=== PATIENT | male | born 1960 | race Two or more races ===

== ENCOUNTER 2019-03-08 13:54 | Emergency (ER) | payer BC ==
[2019-03-08] MEDS ORDERED: OXYCODONE-ACETAMINOPHEN 5-325 MG TABLET PO ONE (14:42)
[2019-03-08] MEDS ORDERED: LIDOCAINE 1% INJ (10 MG/ML) 10 ML MDV INJ ONE (14:42)
[2019-03-08] MEDS ORDERED: DIPH/PERTUSS(ACELL)/TETANUS VAC/PF 0.5 ML SYR (>=10YO) IM ONE (14:52)
[2019-03-08] MEDS ORDERED: IBUPROFEN 800 MG TABLET PO ONE (15:12)
[2019-03-08] MEDS ORDERED: CEFAZOLIN 2 GM/D5W RTU 2 GM/50 ML RTUPB IV ONE (15:23)
--- NOTE | 2019-03-08 15:23 | RADIOLOGY REPORT (SQ) ---
EXAM DESCRIPTION: FINGER RIGHT COMPLETED DATE/TIME: 03/08/2019 3:14 pm REASON FOR STUDY: thumb/power saw injury COMPARISON: None. NUMBER OF VIEWS: Three views. TECHNIQUE: AP, lateral, and oblique images acquired of the right thumb. LIMITATIONS: None. FINDINGS: MINERALIZATION: Normal. BONES: Comminuted fracture of the distal phalanx with amputation of the tuft. SOFT TISSUES: Soft tissue deformity of the distal thumb. No radiopaque foreign body. OTHER: No other significant finding. IMPRESSION: TRAUMATIC AMPUTATION OF THE DISTAL END OF THE THUMB. COMMINUTED FRACTURE OF THE DISTAL PHALANX. NO RADIOPAQUE FOREIGN BODY IDENTIFIED. COMMENT: SITE OF TRAUMA/COMPLAINT MARKED/STAMP COMPLETED: YES. TECHNICAL DOCUMENTATION: JOB ID: [id number] [employer]- All Rights Reserved Reading location - IP/workstation name: [email or web address]
[2019-03-08] MEDS ORDERED: LIDOCAINE 1% INJ-PF (10 MG/ML) 30 ML SDV INJ ONE (15:35)
[2019-03-08] MEDS ORDERED: CEFAZOLIN INJ 1 GM VIAL IM ONE (15:39)
--- NOTE | 2019-03-08 16:02 | ER Document Report ---
ED Wound - General Chief Complaint: Finger Injury Stated Complaint: RIGHT HAND INJURY Time Seen by Provider: 03/08/19 14:18 Primary Care Provider: ALLIE HERNANDEZ PA [Primary Care Provider] - Follow up as needed LASHELL CARRERA MD [ACTIVE STAFF] - Follow up as needed Notes: Patient is a 58-year-old male history of diabetes presents to the emergency department for a laceration to his right thumb. States he was using a table saw when his hand slipped and he accidentally cut his right thumb. Patient is unsure of his last tetanus immunization. Patient's denying any other injuries. TRAVEL OUTSIDE OF THE [place] IN LAST 30 DAYS: No - Related Data Allergies/Adverse Reactions: No Known Allergies Allergy (Unverified 10/11/16 19:11) Past Medical History - General Information source: Patient - Social History Smoking Status: Never Smoker Chew tobacco use (# tins/day): No Frequency of alcohol use: None Drug Abuse: None Family History: Reviewed & Not Pertinent Patient has suicidal ideation: No Patient has homicidal ideation: No - Past Medical History Cardiac Medical History: Denies: Hx Coronary Artery Disease, Hx Heart Attack, Hx Hypertension Pulmonary Medical History: Denies: Hx Asthma, Hx Bronchitis, Hx COPD, Hx Pneumonia Neurological Medical History: Denies: Hx Cerebrovascular Accident, Hx Seizures Musculoskeletal Medical History: Denies Hx Arthritis - Immunizations Hx Diphtheria, Pertussis, Tetanus Vaccination: Yes Review of Systems - Review of Systems Constitutional: denies: Fever EENT: No symptoms reported Cardiovascular: No symptoms reported Respiratory: No symptoms reported Gastrointestinal: No symptoms reported Genitourinary: No symptoms reported Male Genitourinary: No symptoms reported Musculoskeletal: See HPI Skin: See HPI Hematologic/Lymphatic: No symptoms reported Neurological/Psychological: No symptoms reported Physical Exam - Vital signs Vitals: Temp Pulse Resp BP Pulse Ox 97.3 F 63 22 H 133/77 H 94 03/08/19 14:00 03/08/19 14:00 03/08/19 14:00 03/08/19 14:00 03/08/19 14:00 - Notes Notes: GENERAL: Alert, interacts well. No acute distress. HEAD: Normocephalic, atraumatic. EYES: Pupils equal, round, and reactive to light. Extraocular movements intact. ENT: Oral mucosa moist, tongue midline. NECK: Full range of motion. Supple. Trachea midline. LUNGS: Clear to auscultation bilaterally, no wheezes, rales, or rhonchi. No respiratory distress. HEART: Regular rate and rhythm. No murmur ABDOMEN: Soft, non-tender. Non-distended. Bowel sounds present in all 4 quadrants. EXTREMITIES: Moves all 4 extremities spontaneously. No edema, normal radial and dorsalis pedis pulses bilaterally. No cyanosis. Full range of motion right MCP and DIP. BACK: no cervical, thoracic, lumbar midline tenderness. No saddle anesthesia, normal distal neurovascular exam. NEUROLOGICAL: Alert and oriented x3. Normal speech. cranial nerves II through XII grossly intact PSYCH: Normal affect, normal mood. SKIN: Warm, dry, normal turgor. Gaping laceration, multiple flaps, contused tissue Noted to the dorsal aspect of the distal right thumb around the nailbed approximately 4 cm. Course - Re-evaluation Re-evalutation: 03/08/19 15:56 Finger X-Ray 03/08/19 14:41 IMPRESSION: TRAUMATIC AMPUTATION OF THE DISTAL END OF THE THUMB. COMMINUTED FRACTURE OF THE DISTAL PHALANX. NO RADIOPAQUE FOREIGN BODY IDENTIFIED. I discussed this patient and x-ray images with orthopedic Dr. Carrera. He is suggesting loosely suturing the patient's right thumb and sending him home on . Dr. Carrera states he will see the patient his office tomorrow. Patient was given initial dose of Ancef in the emergency department. Laceration repaired, patient tolerated well, see procedure note. At this time will discharge with return precautions and follow-up recommendations. Verbal discharge instructions given a the bedside and opportunity for questions given. Medication warnings reviewed. Patient is in agreement with this plan and has verbalized understanding of return precautions and the need for primary care follow-up in the next 24-72 hours. This medical record was dictated with voice recognizing software. There may be grammatical, syntax errors that are unintended. - Vital Signs Vital signs: Temp Pulse Resp BP Pulse Ox 98.5 F 76 14 136/74 H 97 03/08/19 17:00 03/08/19 17:00 03/08/19 17:00 03/08/19 17:00 03/08/19 17:00 Procedures - Immobilization Right thumb Immobilizer type: Finger splint (Static) Performed by: Provider assisted Post-Proc Neuro Vasc Exam: Normal Alignment checked and good: Yes - Laceration/Wound Repair right finger Wound length (cm): 4 Wound's Depth, Shape: Into muscle, Irregular, Flap, Nail-avulsed, Contused tissue Laceration pre-procedure: Sterile PPE donned, Betadine prep applied, Sterile drapes applied, Shur-Clens applied Anesthetic type: 1% Lidocaine Volume Anesthetic (mLs): 5 Wound explored: Clean Irrigated w/ Saline (mLs): 1,000 Wound Debrided: Extensive Wound Repaired With: Sutures Suture Size/Type: Vicryl, 4:0 Number of Sutures: 3 Post-procedure wound care: Sterile dressing applied, Splint applied Post-procedure NV exam normal: Yes Complications: No Discharge - Discharge Clinical Impression: Laceration of right thumb Qualifiers: Encounter type: initial encounter Damage to nail status: with damage Foreign body presence: without foreign body Qualified Code(s): S61.111A - Laceration without foreign body of right thumb with damage to nail, initial encounter Phalanx, distal fracture of finger Qualifiers: Encounter type: initial encounter Finger: thumb Fracture type: open Fracture alignment: displaced Laterality: right Qualified Code(s): S62.521B - Displaced fracture of distal phalanx of right thumb, initial encounter for open fracture Condition: Stable Disposition: HOME, SELF-CARE Instructions: Laceration Care ([facility]), Oral Narcotic Medication ([facility]), Prophylactic Antibiotic ([facility]), Tetanus Immunization Given ([facility]) Additional Instructions: As we discussed you have been seen and treated in the emergency department for an injury to your right thumb. You have sustained a laceration as well as a broken bone. Please make sure taking antibiotics as prescribed. Please only use pain medication as needed. Please make sure you are following up with Dr. Carrera's office tomorrow morning. Phone numbers and address are provided in this packet. Return to the emergency room for any concerns. Prescriptions: Sulfamethoxazole/Trimethoprim [Bactrim Ds Tablet] 1 each PO BID 7 Days #14 tablet Hydrocodone/Acetaminophen [[place] 5-325 mg Tablet] 1 tab PO Q4 PRN #14 tablet PRN Reason: Forms: Return to Work Referrals: ALLIE HERNANDEZ PA [Primary Care Provider] - Follow up as needed LASHELL CARRERA MD [ACTIVE STAFF] - Follow up as needed
[2019-03-08 17:49] VITALS: BP 123/77
== END 2019-03-08 17:40 | disposition home or self-care (01) ==
LOC: ER 13:54
DX: S62.521B Displaced fracture of distal phalanx of right thumb, initial encounter for open fracture (principal); W29.8XXA Contact with other powered hand tools and household machinery, initial encounter; E11.9 Type 2 diabetes mellitus without complications; Z23 Encounter for immunization
CPT/HCPCS: 73140; 90715; 12002; J0690; J3490